=== PATIENT | female | born 1955 | race Caucasian/White ===

== ENCOUNTER 2021-07-18 08:00 | Observation (INO) ==
[~2021-07-18 08:00] MED LIST: BUPIVACAINE **LIPOSOME/PF 13.3 MG/ML (266MG/ 20ML) VIAL (RESTRICTED) INFIL ONE; Buffered Lidocaine 1% SYRIN 1 ml INTRADERM ONE; Famotidine IV 10 MG/ML 2 ml VIAL (20 mg) IV ONE; Lactated Ringers 1000 ml BAG 1,000 ML IV SCH
[2021-07-18] MEDS ORDERED: ceFAZolin 2 GM PREMIX 2 GM/50 ML BAG ONE (08:22)
[2021-07-18] MEDS ORDERED: Famotidine IV 10 MG/ML 2 ml VIAL (20 mg) ONE (08:22)
[2021-07-18] MEDS ORDERED: Bupivacaine 0.25% SDV 30 ML ONE (10:00)
[2021-07-18] MEDS ORDERED: Lidocaine 2% PF 5 ML VIAL ONE (11:09)
[2021-07-18] MEDS ORDERED: Midazolam 2 mg/2 ml VIAL 1 mg/ml 2 ml VIAL (2 mg) ONE (11:12)
[2021-07-18] MEDS ORDERED: fentaNYL 100 mcg/2 ml 50 MCG/ML VIAL IV PRN (11:52)
[2021-07-18] MEDS ORDERED: Ondansetron 4 mg VIAL 2 MG/ML 2 ml VIAL IV PRN ×3 (11:52→16:00)
[2021-07-18] MEDS ORDERED: Naloxone 0.4 mg VIAL 0.4 mg/ml 1 ml VIAL IV PRN ×2 (11:52→16:00)
[2021-07-18] MEDS ORDERED: Phenylephrine 40 mcg/mL 10mL (400mcg) SYRINGE ONE ×3 (11:54→13:22)
[2021-07-18] MEDS ORDERED: Ondansetron 4 mg VIAL 2 MG/ML 2 ml VIAL ONE ×2 (13:45→15:44)
[2021-07-18] MEDS ORDERED: EPHEDrine (Pressors) 50 MG/ML VIAL ONE (13:52)
[2021-07-18] MEDS ORDERED: diPHENhydraMINE 25 mg TAB PO PRN (14:14)
[2021-07-18] MEDS ORDERED: Ondansetron ODT 4 mg TAB 4 MG TAB PO PRN (14:14)
[2021-07-18] MEDS ORDERED: diPHENhydraMINE IV 50 MG/ML 1 ml VIAL (BENADRYL) IV PRN (14:14)
[2021-07-18] MEDS ORDERED: Magnesium Hydroxide LIQ 30 ML UDC PO PRN (14:14)
[2021-07-18] MEDS ORDERED: Morphine 2 MG/ML SYRINGE IV PRN (14:14)
[2021-07-18] MEDS ORDERED: Lactulose 30 ml UDC PO PRN (14:14)
[2021-07-18] MEDS ORDERED: DiMENhydriNATE IV 50 mg/ml 1 ml VIAL IV PUSH PRN (16:00)
[2021-07-18] MEDS: Lactated Ringers 1000 ml BAG 1,000 ML IV SCH (17:20)
[2021-07-18] MEDS: ceFAZolin 1 GM ADVAN 1 GM in NS 0.9% 50 ML 50 ML IVPB SCH (19:47)
[2021-07-18] MEDS: Magnesium Hydroxide LIQ 30 ML UDC PO SCH (19:55)
[2021-07-19] MEDS: ceFAZolin 1 GM ADVAN 1 GM in NS 0.9% 50 ML 50 ML IVPB SCH ×2 (03:27→11:45)
[2021-07-19] MEDS: Lactated Ringers 1000 ml BAG 1,000 ML IV SCH (04:16)
[2021-07-19 06:21] LABS: Hematocrit 31 % (35-47); Hemoglobin 10.5 g/dL (12.0-16.0); Mean Platelet Volume 8.9 fL (7.4-10.4); Platelet Count 172 10^3/uL (150-450)
[2021-07-19 06:37] LABS: Calcium 8.7 mg/dL (8.6-10.3); Potassium 4.5 mmol/L (3.5-5.0); eGFR CKD-EPI 86.7 (>60)
[2021-07-19] MEDS: Magnesium Hydroxide LIQ 30 ML UDC PO SCH (08:17)
[2021-07-19] MEDS ORDERED: Vitamin THERAPEUTIC TAB PO SCH (09:00)
[2021-07-19 12:19] VITALS: BP 101/50
== END 2021-07-19 13:00 | disposition home or self-care (01) ==
LOC: SSU 08:00 → OR 08:00
PROVIDERS: ADMIT Orthopaedic Surgery Sports Medicine; ATTEND Orthopaedic Surgery Sports Medicine